=== PATIENT | male | born 1970 | race Two or more races ===

== ENCOUNTER 2021-01-03 03:21 | Emergency (ER) | payer SELFPAY ==
[~2021-01-03] VITALS: Ht 180.3 cm; Wt 81.6 kg
[2021-01-03 03:23] VITALS: BP 116/78
== END 2021-01-03 05:47 | disposition left against medical advice (07) ==
LOC: ER 03:24 → EEVIPCON 03:24 → ER 05:47
DX: M54.9 Dorsalgia, unspecified (principal); Z53.21 Procedure and treatment not carried out due to patient leaving prior to being seen by health care provider